=== PATIENT | male | born 1930 | race Caucasian/White ===

== ENCOUNTER 2017-01-21 16:35 | Emergency (ER) | payer OTHER ==
[~2017-01-21] VITALS: Ht 182.9 cm; Wt 98.8 kg
[~2017-01-21 16:35] MED LIST: ACIPHEX20 MG PO; APIDRA100 UNIT/1 SQ; BACTRIM,SEPT1 TABLET PO; CALCIUM 500 +1 EACH PO; CALCIUM 600 +1 EAC7 PO; CALCIUM CITRAT1 EA14 PO; CARAFATE1 GM PO; CELEXA10 MG PO; CLEARLAX17 GM PO; COUMADIN,JANTO7.5 MG PO; COUMADIN5 MG PO; DIOVAN160 MG PO; FLEXERIL10 MG PO; GLUCOSAMINE H1500 MG PO; GLUCOSAMINE-MS1 EAC3 PO; KEFLEX500 MG PO; LANTUS 10100 UNITS/ SC; LANTUS100 UNIT/2 SQ; LISINOPRIL2.5 MG PO; LISINOPRIL5 MG PO; LOSARTAN-HCTZ1 EACH PO; LOTEMAX5 ML LEFT EYE; LOVENOX100 MG/1 M SC; MULTI VITAMINS PO; NATURAL BALANCE15 ML BOTH EYES; NON-ASPIRIN EX500 M2 PO; NOVOLOG 10100 UNITS/ SC; NUVIGIL150 MG PO; OSTEO-BIFLE1 CAPSULE PO; PERCOCET 5/31 TABLET PO; PROAIR HFA8.5 GM IH; TYLENOL EXTRA500 MG PO; ULTRAM50 MG PO; ZETIA10 MG PO
[2017-01-21 17:25] LABS: ADD MIUA? YES; BILIRUBIN NEGATIVE; BLOOD SMALL; COLOR YELLOW ((YELLOW)); GLUCOSE (STRIP) >=500; KETONES 5; LEUKOCYTES NEGATIVE; NITRITE NEGATIVE; PROTEIN (STRIP) 30; SPECIFIC GRAVITY 1.018 (1.000-1.030); UROBILINOGEN 0.2 MG/DL (0.2-1.0)
[2017-01-21 17:44] LABS: CASTS NONE SEEN /LPF; CRYSTALS PRESENT; EPITHELIAL CELLS RARE /HPF; MUCUS TRACE /LPF; RED BLOOD CELLS RARE /HPF (0-5); UCUL ADDED? NO; WHITE BLOOD CELLS NONE SEEN /HPF (0-5)
[2017-01-21 17:45] LABS: AMORPHOUS URATES CRYSTALS 1+; BACTERIA RARE /HPF
[2017-01-21 18:02] LABS: HEMATOCRIT 32.8 % (38.0-50.0); MCH 25.9 PG (29.0-34.0); MCV 80.8 FL (86-99); MEAN PLAT.VOLUME 9.8 uM^3 (9.0-12.4); PLATELET COUNT 106 K/uL (156-360); RBC DIS.WIDTH-CV 18.7 % (11.8-14.6); RBC DIS.WIDTH-SD 54.4 % (39-53); RED BLOOD COUNT 4.06 M/uL (4.00-5.50); WHITE BLOOD COUNT 5.6 K/uL (4.1-10.2)
[2017-01-21 18:11] LABS: CHLORIDE 109 mEq/L (99-109); POTASSIUM 3.7 mEq/L (3.7-5.4); SODIUM 135 mEq/L (136-147)
[2017-01-21 18:13] LABS: GLUCOSE 216 mg/dL (70-99)
[2017-01-21 18:14] LABS: ANION GAP 11 MEQ/L (2-14)
[2017-01-21 18:17] LABS: GFR ESTIMATE (CALCULATED) > 59 mL/min/; UREA NITROGEN (BUN) 17 mg/dL (9-23)
[2017-01-21 20:13] VITALS: BP 177/62
== END 2017-01-21 20:14 | disposition home or self-care (01) ==
LOC: EME 16:35
PROVIDERS: Emergency Medicine
DX: E11.65 Type 2 diabetes mellitus with hyperglycemia (principal); M25.551 Pain in right hip; Z79.4 Long term (current) use of insulin; I10 Essential (primary) hypertension; F32.9 Major depressive disorder, single episode, unspecified; Z87.442 Personal history of urinary calculi; Z86.718 Personal history of other venous thrombosis and embolism; Z79.01 Long term (current) use of anticoagulants; Z87.891 Personal history of nicotine dependence; Z88.8 Allergy status to other drugs, medicaments and biological substances
CPT/HCPCS: 73502; 80048; 81003; 85027; 99281; 99284; J7030

== ENCOUNTER 2017-01-22 15:03 | Inpatient (IN) | payer OTHER ==
[~2017-01-22] VITALS: Ht 185.4 cm; Wt 96.8 kg
[2017-01-22 15:36] LABS: HEMATOCRIT 31.4 % (38.0-50.0); MCHC 32.5 G/DL (30.0-36.0); MCV 80.1 FL (86-99); MEAN PLAT.VOLUME 10.1 uM^3 (9.0-12.4); PLATELET COUNT 96 K/uL (156-360); RBC DIS.WIDTH-CV 18.9 % (11.8-14.6); RBC DIS.WIDTH-SD 53.9 % (39-53); RED BLOOD COUNT 3.92 M/uL (4.00-5.50); WHITE BLOOD COUNT 6.1 K/uL (4.1-10.2)
[2017-01-22 15:42] LABS: CHLORIDE 101 mEq/L (99-109); POTASSIUM 3.6 mEq/L (3.7-5.4)
[2017-01-22 15:43] LABS: GLUCOSE 277 mg/dL (70-99); SODIUM 128 mEq/L (136-147)
[2017-01-22 15:45] LABS: ANION GAP 13 MEQ/L (2-14)
[2017-01-22 15:47] LABS: GFR ESTIMATE (CALCULATED) > 59 mL/min/
[2017-01-22 15:48] LABS: UREA NITROGEN (BUN) 22 mg/dL (9-23)
[2017-01-22 15:51] LABS: TROP-I INTERPRETATION NEGATIVE; TROPONIN-I 0.02 ng/mL (0.0-0.30)
[2017-01-22 16:01] LABS: BASE EXCESS -3.8 mEq/L (-3 to +3); BICARBONATE 18.3 mEq/L (22-26); CARBOXY HGB 0.8 % (0-5); COMMENTS - BLOOD GASES A+C+; DEVICE RA; METHEMOGLOBIN 0.1 % (0-1.5); PCO2 24 mm Hg (35-45); PO2 66 mm Hg (80-100); SITE LR; TOTAL RESP RATE 30 resp/min; pH 7.49 (7.35-7.45)
[2017-01-22 16:41] LABS: ADD MIUA? YES; BILIRUBIN NEGATIVE; BLOOD SMALL; COLOR YELLOW ((YELLOW)); GLUCOSE (STRIP) 150; KETONES 5; LEUKOCYTES NEGATIVE; NITRITE NEGATIVE; PROTEIN (STRIP) NEGATIVE; UROBILINOGEN 0.2 MG/DL (0.2-1.0)
[2017-01-22 16:54] LABS: BACTERIA NONE SEEN /HPF; CASTS PRESENT /LPF; EPITHELIAL CELLS NONE SEEN /HPF; HYALINE CASTS RARE /LPF; MUCUS NONE SEEN /LPF; RED BLOOD CELLS NONE SEEN /HPF (0-5); WHITE BLOOD CELLS NONE SEEN /HPF (0-5)
[2017-01-22 17:43] LABS: INTER. NORMALIZED RATIO 1.6; PROTHROMBIN TIME 18.2 SEC (10.2-12.9)
[2017-01-22 17:46] LABS: PTT 32.9 SEC (25-37)
[2017-01-22 17:53] LABS: TOTAL BILIRUBIN 1.8 mg/dL (0.0-1.0)
[2017-01-22 17:54] LABS: ALKALINE PHOSPHATASE 104 IU/L (3-129)
[2017-01-22 17:57] LABS: EOSINOPHIL (%) 0.2 % (0-5); IMMATURE GRANULOCYTE (%) 0.8 % (0.0-0.7); IMMATURE GRANULOCYTE COUNT 0.1 K/uL; INSTRUMENT ABS NEUTROPHIL CT 5.6 K/uL; LIPASE 20 U/L (1.0-51.0); LYMPHOCYTE COUNT 0.3 K/uL (1.0-2.8); MONOCYTE (%) 4.2 % (3-12); MONOCYTE COUNT 0.3 K/uL (0-0.8); NEUTROPHIL (%) 89.8 % (45-76); NEUTROPHIL COUNT 5.6 K/uL (1.8-6.4)
[2017-01-23] VITALS (7 sets, daily range): BP systolic 125–158; BP diastolic 58–71
[2017-01-23 01:08] LABS: INTER. NORMALIZED RATIO 2.7
[2017-01-23 01:22] LABS: PROTHROMBIN TIME 31.1 SEC (10.2-12.9); PTT 49.4 SEC (25-37)
[2017-01-23 01:23] LABS: TROP-I INTERPRETATION NEGATIVE; TROPONIN-I < 0.01 ng/mL (0.0-0.30)
[2017-01-23 06:38] LABS: EOSINOPHIL (%) 0.4 % (0-5); HEMATOCRIT 28.3 % (38.0-50.0); IMMATURE GRANULOCYTE (%) 1.1 % (0.0-0.7); IMMATURE GRANULOCYTE COUNT 0.1 K/uL; INSTRUMENT ABS NEUTROPHIL CT 4.2 K/uL; LYMPHOCYTE COUNT 0.3 K/uL (1.0-2.8); MCHC 33.2 G/DL (30.0-36.0); MCV 81.3 FL (86-99); MEAN PLAT.VOLUME 10.1 uM^3 (9.0-12.4); MONOCYTE (%) 3.6 % (3-12); MONOCYTE COUNT 0.2 K/uL (0-0.8); NEUTROPHIL (%) 89.4 % (45-76); NEUTROPHIL COUNT 4.2 K/uL (1.8-6.4); PLATELET COUNT 87 K/uL (156-360); RBC DIS.WIDTH-CV 19.5 % (11.8-14.6); RBC DIS.WIDTH-SD 56.2 % (39-53); RED BLOOD COUNT 3.48 M/uL (4.00-5.50); WHITE BLOOD COUNT 4.7 K/uL (4.1-10.2)
[2017-01-23 06:44] LABS: INTER. NORMALIZED RATIO 1.7; PROTHROMBIN TIME 19.6 SEC (10.2-12.9)
[2017-01-23 07:05] LABS: TROP-I INTERPRETATION NEGATIVE; TROPONIN-I 0.03 ng/mL (0.0-0.30)
[2017-01-23 10:15] LABS: ANION GAP 11 MEQ/L (2-14); CHLORIDE 104 MEQ/L (99-109); POTASSIUM 3.9 MEQ/L (3.7-5.4); SAMPLE HEMOLYSIS CHECK 0; SAMPLE ICTERIC CHECK 0; SAMPLE LIPEMIA CHECK 0; SODIUM 131 MEQ/L (136-147); TOTAL BILIRUBIN 1.4 MG/DL (0.0-1.0)
[2017-01-23 10:21] LABS: ALKALINE PHOSPHATASE 98 IU/L (3-129); GFR ESTIMATE (CALCULATED) > 59 mL/min/; GLUCOSE 356 mg/dL (70-99); UREA NITROGEN (BUN) 22 mg/dL (9-23)
[2017-01-23 12:05] LABS: POINT-OF-CARE METER ID UU14188625
[2017-01-23] MEDS ORDERED: FUROSEMIDE80 MG PO (13:10)
[2017-01-23] MEDS ORDERED: BACTRIM,SEPT1 TABLET PO (13:10)
[2017-01-23] MEDS ORDERED: WARFARIN SODIUM5 MG PO (13:11)
[2017-01-23] MEDS ORDERED: NOVOLOG 10100 UNITS/ SC (13:11)
[2017-01-23] MEDS ORDERED: LANTUS 10100 UNITS/ SC (13:11)
[2017-01-23] MEDS ORDERED: OMEPRAZOLE20 MG PO (13:12)
[2017-01-23] MEDS ORDERED: TAMSULOSIN HCL0.4 MG PO (13:13)
[2017-01-23 17:01] LABS: POINT-OF-CARE METER ID UU14188625
[2017-01-23 23:29] LABS: POINT-OF-CARE METER ID UU14188625
[2017-01-24] VITALS (7 sets, daily range): BP systolic 140–182; BP diastolic 63–82
[2017-01-24 06:16] LABS: INTER. NORMALIZED RATIO 1.7
[2017-01-24 06:56] LABS: POINT-OF-CARE METER ID UU13113717
[2017-01-24 11:17] LABS: POINT-OF-CARE METER ID UU14188625
[2017-01-24 14:42] LABS: HEMATOCRIT 30.4 % (38.0-50.0); MCH 25.8 PG (29.0-34.0); MCHC 31.3 G/DL (30.0-36.0); MCV 82.6 FL (86-99); RBC DIS.WIDTH-SD 59.5 % (39-53); RED BLOOD COUNT 3.68 M/uL (4.00-5.50); WHITE BLOOD COUNT 3.3 K/uL (4.1-10.2)
[2017-01-24 15:06] LABS: ANION GAP 8 MEQ/L (2-14); CHLORIDE 105 MEQ/L (99-109); GFR ESTIMATE (CALCULATED) > 59 mL/min/; GLUCOSE 348 mg/dL (70-99); POTASSIUM 3.8 MEQ/L (3.7-5.4); SAMPLE HEMOLYSIS CHECK 0; SAMPLE ICTERIC CHECK 0; SAMPLE LIPEMIA CHECK 0; SODIUM 131 MEQ/L (136-147); UREA NITROGEN (BUN) 20 mg/dL (9-23)
[2017-01-24 15:34] LABS: PLATELET CLUMPS PRESENT - PLATELET COUNTS APPEARS DECREASED
[2017-01-24 16:09] LABS: PLATELET COUNT UNABLE TO REPORT K/uL (156-360)
[2017-01-24 16:44] LABS: POINT-OF-CARE METER ID UU14188625
[2017-01-25 01:10] LABS: POINT-OF-CARE METER ID UU14188625
[2017-01-25 03:28] LABS: POINT-OF-CARE METER ID UU13113717
[2017-01-25 04:26] VITALS: BP 158/71
[2017-01-25 06:52] LABS: POINT-OF-CARE METER ID UU13113717
[2017-01-25 07:09] VITALS: BP 152/70
[2017-01-25 07:20] LABS: MCH 26.1 PG (29.0-34.0); MCHC 32.8 G/DL (30.0-36.0); MCV 79.6 FL (86-99); RBC DIS.WIDTH-CV 19.9 % (11.8-14.6); RBC DIS.WIDTH-SD 56.6 % (39-53); RED BLOOD COUNT 3.14 M/uL (4.00-5.50)
[2017-01-25 07:27] LABS: WHITE BLOOD COUNT 0.7 K/uL (4.1-10.2)
[2017-01-25 07:56] LABS: IMM.PLATELET FRACTION 0.3 (1-7)
[2017-01-25 08:05] LABS: PLAT.SUFFICIENCY VERY DECREASED
[2017-01-25 08:33] LABS: HEMATOCRIT 31.1 % (38.0-50.0); MCH 25.5 PG (29.0-34.0); MCHC 31.2 G/DL (30.0-36.0); MCV 81.6 FL (86-99); MEAN PLAT.VOLUME 10.1 uM^3 (9.0-12.4); RBC DIS.WIDTH-CV 20.3 % (11.8-14.6); RBC DIS.WIDTH-SD 59.7 % (39-53)
[2017-01-25 08:37] LABS: INTER. NORMALIZED RATIO 1.8; PROTHROMBIN TIME 19.9 SEC (10.2-12.9)
[2017-01-25 09:03] LABS: PLATELET COUNT 95 K/uL (156-360); RED BLOOD COUNT 3.81 M/uL (4.00-5.50)
[2017-01-25 09:11] LABS: ANION GAP 7 MEQ/L (2-14); CHLORIDE 109 MEQ/L (99-109); GFR ESTIMATE (CALCULATED) > 59 mL/min/; GLUCOSE 100 mg/dL (70-99); MAGNESIUM 1.9 mg/dl (1.3-2.7); POTASSIUM 3.3 MEQ/L (3.7-5.4); SAMPLE HEMOLYSIS CHECK 0; SAMPLE ICTERIC CHECK 0; SAMPLE LIPEMIA CHECK 0; SODIUM 138 MEQ/L (136-147); UREA NITROGEN (BUN) 18 mg/dL (9-23)
[2017-01-25 11:18] VITALS: BP 168/80
[2017-01-25 11:23] LABS: POINT-OF-CARE METER ID UU13113717
[2017-01-25 15:08] VITALS: BP 140/88
[2017-01-25 16:40] LABS: POINT-OF-CARE METER ID UU14174225
[2017-01-25 19:41] VITALS: BP 166/72
[2017-01-25 21:37] LABS: POINT-OF-CARE METER ID UU14174225
[2017-01-25 23:55] VITALS: BP 162/70
[2017-01-26 03:55] VITALS: BP 166/70
[2017-01-26 06:05] LABS: HEMATOCRIT 28.2 % (38.0-50.0); MCH 26.9 PG (29.0-34.0); MCV 81.5 FL (86-99); MEAN PLAT.VOLUME 10.8 uM^3 (9.0-12.4); PLATELET COUNT 84 K/uL (156-360); RBC DIS.WIDTH-CV 20.5 % (11.8-14.6); RBC DIS.WIDTH-SD 59.7 % (39-53); RED BLOOD COUNT 3.46 M/uL (4.00-5.50)
[2017-01-26 06:18] LABS: INTER. NORMALIZED RATIO 2.3; PROTHROMBIN TIME 26.7 SEC (10.2-12.9)
[2017-01-26 06:33] LABS: ANION GAP 9 MEQ/L (2-14); CHLORIDE 108 MEQ/L (99-109); GFR ESTIMATE (CALCULATED) > 59 mL/min/; GLUCOSE 100 mg/dL (70-99); MAGNESIUM 1.8 mg/dl (1.3-2.7); POTASSIUM 2.7 MEQ/L (3.7-5.4); SAMPLE HEMOLYSIS CHECK 0; SAMPLE ICTERIC CHECK 0; SAMPLE LIPEMIA CHECK 0; SODIUM 138 MEQ/L (136-147); UREA NITROGEN (BUN) 15 mg/dL (9-23)
[2017-01-26 07:36] VITALS: BP 169/82
[2017-01-26 12:05] LABS: POINT-OF-CARE METER ID UU13113717
[2017-01-26 15:23] VITALS: BP 149/67
[2017-01-26 16:59] LABS: POINT-OF-CARE METER ID UU13113717
[2017-01-26 20:54] LABS: POINT-OF-CARE METER ID UU13113717
[2017-01-26 23:43] VITALS: BP 155/70
[2017-01-27 03:57] LABS: POINT-OF-CARE METER ID UU13113717
[2017-01-27 05:59] LABS: HEMATOCRIT 29.3 % (38.0-50.0); MCH 26.3 PG (29.0-34.0); MCHC 32.4 G/DL (30.0-36.0); MCV 81.2 FL (86-99); MEAN PLAT.VOLUME 10.7 uM^3 (9.0-12.4); PLATELET COUNT 90 K/uL (156-360); RBC DIS.WIDTH-CV 20.4 % (11.8-14.6); RBC DIS.WIDTH-SD 59.9 % (39-53); RED BLOOD COUNT 3.61 M/uL (4.00-5.50); WHITE BLOOD COUNT 4.3 K/uL (4.1-10.2)
[2017-01-27 06:08] LABS: INTER. NORMALIZED RATIO 2.6; PROTHROMBIN TIME 29.7 SEC (10.2-12.9)
[2017-01-27 06:41] LABS: ANION GAP 8 MEQ/L (2-14); CHLORIDE 105 MEQ/L (99-109); GFR ESTIMATE (CALCULATED) > 59 mL/min/; GLUCOSE 168 mg/dL (70-99); POTASSIUM 3.1 MEQ/L (3.7-5.4); SAMPLE HEMOLYSIS CHECK 0; SAMPLE ICTERIC CHECK 0; SAMPLE LIPEMIA CHECK 0; SODIUM 137 MEQ/L (136-147); UREA NITROGEN (BUN) 14 mg/dL (9-23)
[2017-01-27 07:40] LABS: POINT-OF-CARE METER ID UU14174225
[2017-01-27 08:06] VITALS: BP 154/81
[2017-01-27 11:54] LABS: POINT-OF-CARE METER ID UU13113717
[2017-01-27] MEDS ORDERED: COUMADIN3 MG PO (12:18)
[2017-01-27] MEDS ORDERED: K-DUR20 MEQ PO (12:24)
[2017-01-27] MEDS ORDERED: MAGNESIUM400 M1 PO (13:46)
[2017-01-27 15:00] VITALS: BP 137/72
== END 2017-01-27 15:12 | DRG 871 ==
LOC: EME 15:03 → EDOF 23:23 → 5SOUTH 23:23 → ENRESERV 23:25 → 5SOUTH 01-23 01:32
PROVIDERS: Internal Medicine; Nurse Practitioner Adult Health; Nurse Practitioner Family
PROC: 0H96XZZ Drainage of Back Skin, External Approach (ICD-10-PCS; principal; 2017-01-23)
DX: A41.9 Sepsis, unspecified organism (principal); G93.41 Metabolic encephalopathy; E87.4 Mixed disorder of acid-base balance; E87.6 Hypokalemia; M79.89 Other specified soft tissue disorders; L72.0 Epidermal cyst; I51.7 Cardiomegaly; J44.9 Chronic obstructive pulmonary disease, unspecified; F32.9 Major depressive disorder, single episode, unspecified; E88.09 Other disorders of plasma-protein metabolism, not elsewhere classified; I10 Essential (primary) hypertension; D68.51 Activated protein C resistance; E11.65 Type 2 diabetes mellitus with hyperglycemia; I11.9 Hypertensive heart disease without heart failure; W18.30XA Fall on same level, unspecified, initial encounter; R29.6 Repeated falls; E87.1 Hypo-osmolality and hyponatremia; E83.51 Hypocalcemia; G47.33 Obstructive sleep apnea (adult) (pediatric); D64.9 Anemia, unspecified; Z86.718 Personal history of other venous thrombosis and embolism; Z79.4 Long term (current) use of insulin; Z88.6 Allergy status to analgesic agent; Z88.8 Allergy status to other drugs, medicaments and biological substances; Z79.01 Long term (current) use of anticoagulants; Z86.711 Personal history of pulmonary embolism; Z83.3 Family history of diabetes mellitus; Z91.19 Patient's noncompliance with other medical treatment and regimen; Z87.442 Personal history of urinary calculi
CPT/HCPCS: 36600; 70450; 71010; 71020; 72128; 73502; 74177; 80048; 80053; 80076; 80202; 81003; 82040; 82803; 82948; 83605; 83690; 83735; 83880; 83930; 83935; 84300; 84484; 85025; 85027; 85610; 85730; 87040; 87070; 87075; 87205; 87493; 93005; 99202; 99281; 99284; 99285; J0692; J1815; J1940; J2543; J3010; J3370; J3475; J3480; J7030; J7050

== ENCOUNTER 2017-03-12 10:49 | Inpatient (IN) | payer OTHER ==
[~2017-03-12] VITALS: Ht 188 cm; Wt 93.9 kg
[~2017-03-12 10:49] MED LIST changes: +COUMADIN3 MG PO; +FUROSEMIDE80 MG PO; +K-DUR20 MEQ PO; +MAGNESIUM400 M1 PO; +OMEPRAZOLE20 MG PO; +TAMSULOSIN HCL0.4 MG PO; +WARFARIN SODIUM5 MG PO
[2017-03-12 12:00] LABS: EOSINOPHIL (%) 2.2 % (0-5); EOSINOPHIL COUNT 0.1 K/uL (0-0.3); HEMATOCRIT 33.7 % (38.0-50.0); IMMATURE GRANULOCYTE (%) 0.7 % (0.0-0.7); INSTRUMENT ABS NEUTROPHIL CT 3.1 K/uL; MCH 26.3 PG (29.0-34.0); MCV 82.2 FL (86-99); MEAN PLAT.VOLUME 9.1 uM^3 (9.0-12.4); MONOCYTE (%) 7.1 % (3-12); MONOCYTE COUNT 0.3 K/uL (0-0.8); NEUTROPHIL (%) 67.5 % (45-76); NEUTROPHIL COUNT 3.1 K/uL (1.8-6.4); PLATELET COUNT 101 K/uL (156-360); RBC DIS.WIDTH-CV 17.6 % (11.8-14.6); RBC DIS.WIDTH-SD 52.9 % (39-53); WHITE BLOOD COUNT 4.5 K/uL (4.1-10.2)
[2017-03-12 12:05] LABS: INTER. NORMALIZED RATIO 1.7; PROTHROMBIN TIME 18.9 SEC (10.2-12.9)
[2017-03-12 12:08] LABS: CHLORIDE 107 mEq/L (99-109); POTASSIUM 3.9 mEq/L (3.7-5.4); PTT 34.1 SEC (25-37); SODIUM 138 mEq/L (136-147)
[2017-03-12 12:10] LABS: GLUCOSE 295 mg/dL (70-99)
[2017-03-12 12:11] LABS: ADD MIUA? NO; BILIRUBIN NEGATIVE; BLOOD NEGATIVE; COLOR STRAW ((YELLOW)); GLUCOSE (STRIP) 50; KETONES NEGATIVE; LEUKOCYTES NEGATIVE; NITRITE NEGATIVE; PROTEIN (STRIP) NEGATIVE; SPECIFIC GRAVITY 1.008 (1.000-1.030); UCUL ADDED? NO; UROBILINOGEN 0.2 MG/DL (0.2-1.0)
[2017-03-12 12:11] LABS: ANION GAP 13 MEQ/L (2-14)
[2017-03-12 12:12] LABS: TOTAL BILIRUBIN 0.8 mg/dL (0.0-1.0)
[2017-03-12 12:13] LABS: ALKALINE PHOSPHATASE 198 IU/L (3-129)
[2017-03-12 12:14] LABS: GFR ESTIMATE (CALCULATED) > 59 mL/min/
[2017-03-12 12:15] LABS: UREA NITROGEN (BUN) 13 mg/dL (9-23)
[2017-03-12 12:17] LABS: LIPASE 39 U/L (1.0-51.0)
[2017-03-12] MEDS ORDERED: LASIX40 MG PO (14:37)
[2017-03-12] MEDS ORDERED: KLOR-CON 1010 ME1 PO (14:41)
[2017-03-12] MEDS ORDERED: BUSPIRONE HCL10 MG PO (14:42)
[2017-03-12] MEDS ORDERED: WARFARIN SODIUM2 MG PO (14:44)
[2017-03-12] MEDS ORDERED: WARFARIN SODIUM5 MG PO (14:44)
[2017-03-12] MEDS ORDERED: AMPICILLIN TRI500 MG PO (14:46)
[2017-03-12] MEDS ORDERED: METFORMIN HCL500 MG PO (14:47)
[2017-03-12] MEDS ORDERED: LANTUS 10100 UNITS/ SQ (14:49)
[2017-03-12] MEDS ORDERED: PRED FORTE100 DROP/5 RIGHT EYE (15:05)
[2017-03-12] MEDS ORDERED: MILK OF MAGN PO (15:06)
[2017-03-12] MEDS ORDERED: DULCOLAX10 MG PR (15:07)
[2017-03-12] MEDS ORDERED: FLEET ENEMA-AD118 ML PR (15:07)
[2017-03-12] MEDS ORDERED: TYLENOL REGULA325 MG PO (15:08)
[2017-03-12] MEDS ORDERED: GLUCO BURST37.5 GM PO (15:09)
[2017-03-12 17:27] VITALS: BP 125/61
[2017-03-12 17:33] LABS: POINT-OF-CARE METER ID UU14314084
[2017-03-12 19:54] VITALS: BP 126/60
[2017-03-12 22:06] LABS: POINT-OF-CARE METER ID UU14314084
[2017-03-12 23:57] VITALS: BP 121/62
[2017-03-13 04:42] VITALS: BP 125/66
[2017-03-13 06:39] LABS: EOSINOPHIL (%) 2.7 % (0-5); EOSINOPHIL COUNT 0.2 K/uL (0-0.3); HEMATOCRIT 30.9 % (38.0-50.0); IMMATURE GRANULOCYTE (%) 0.9 % (0.0-0.7); IMMATURE GRANULOCYTE COUNT 0.1 K/uL; INSTRUMENT ABS NEUTROPHIL CT 4.7 K/uL; LYMPHOCYTE COUNT 0.7 K/uL (1.0-2.8); MCH 26.6 PG (29.0-34.0); MCHC 31.7 G/DL (30.0-36.0); MONOCYTE (%) 3.6 % (3-12); MONOCYTE COUNT 0.2 K/uL (0-0.8); NEUTROPHIL COUNT 4.7 K/uL (1.8-6.4); PLATELET COUNT 92 K/uL (156-360); RBC DIS.WIDTH-CV 18.1 % (11.8-14.6); RBC DIS.WIDTH-SD 55.8 % (39-53); RED BLOOD COUNT 3.68 M/uL (4.00-5.50); WHITE BLOOD COUNT 5.8 K/uL (4.1-10.2)
[2017-03-13 06:47] LABS: POINT-OF-CARE METER ID UU14314084
[2017-03-13 07:07] LABS: ANION GAP 9 MEQ/L (2-14); CHLORIDE 110 MEQ/L (99-109); GFR ESTIMATE (CALCULATED) > 59 mL/min/; GLUCOSE 142 mg/dL (70-99); SAMPLE HEMOLYSIS CHECK 0; SAMPLE ICTERIC CHECK 0; SAMPLE LIPEMIA CHECK 0; SODIUM 141 MEQ/L (136-147); UREA NITROGEN (BUN) 16 mg/dL (9-23)
[2017-03-13 07:57] VITALS: BP 129/59
[2017-03-13 10:49] VITALS: BP 123/55
[2017-03-13 11:26] LABS: INTER. NORMALIZED RATIO 1.9; PROTHROMBIN TIME 21.3 SEC (10.2-12.9)
[2017-03-13 12:18] LABS: POINT-OF-CARE METER ID UU14314084
[2017-03-13 12:38] LABS: POINT-OF-CARE METER ID UU14314084
[2017-03-13 15:44] VITALS: BP 106/55
[2017-03-13 16:51] LABS: POINT-OF-CARE METER ID UU14208750
[2017-03-13 20:10] VITALS: BP 155/68
[2017-03-13 21:33] LABS: POINT-OF-CARE METER ID UU14162508
[2017-03-13 23:30] VITALS: BP 122/60
[2017-03-14 04:10] VITALS: BP 137/65
[2017-03-14 06:25] LABS: POINT-OF-CARE METER ID UU14162508
[2017-03-14 06:46] LABS: PROTHROMBIN TIME 22.9 SEC (10.2-12.9)
[2017-03-14 06:50] LABS: EOSINOPHIL (%) 4.7 % (0-5); EOSINOPHIL COUNT 0.2 K/uL (0-0.3); HEMATOCRIT 28.3 % (38.0-50.0); IMMATURE GRANULOCYTE (%) 1.1 % (0.0-0.7); INSTRUMENT ABS NEUTROPHIL CT 2.1 K/uL; LYMPHOCYTE COUNT 0.9 K/uL (1.0-2.8); MCH 27.3 PG (29.0-34.0); MCHC 32.2 G/DL (30.0-36.0); MEAN PLAT.VOLUME 9.1 uM^3 (9.0-12.4); MONOCYTE (%) 11.9 % (3-12); MONOCYTE COUNT 0.4 K/uL (0-0.8); NEUTROPHIL COUNT 2.1 K/uL (1.8-6.4); PLATELET COUNT 71 K/uL (156-360); RBC DIS.WIDTH-CV 18.1 % (11.8-14.6); RBC DIS.WIDTH-SD 55.7 % (39-53); RED BLOOD COUNT 3.33 M/uL (4.00-5.50); WHITE BLOOD COUNT 3.6 K/uL (4.1-10.2)
[2017-03-14 07:13] LABS: ANION GAP 5 MEQ/L (2-14); CHLORIDE 109 MEQ/L (99-109); GFR ESTIMATE (CALCULATED) > 59 mL/min/; GLUCOSE 154 mg/dL (70-99); POTASSIUM 3.5 MEQ/L (3.7-5.4); SAMPLE HEMOLYSIS CHECK 0; SAMPLE ICTERIC CHECK 0; SAMPLE LIPEMIA CHECK 0; SODIUM 136 MEQ/L (136-147); UREA NITROGEN (BUN) 13 mg/dL (9-23)
[2017-03-14 07:27] VITALS: BP 141/68
[2017-03-14 12:08] LABS: POINT-OF-CARE METER ID UU14314084
[2017-03-14 14:17] LABS: INTERNAL CONTROL VALID? YES
[2017-03-14 14:53] LABS: C DIFF TOXIN NEGATIVE (NEGATIVE)
[2017-03-14 15:06] LABS: PROBE CHECK PASS; SPECIMEN PROCESSING CONTROL PASS
[2017-03-14 16:00] VITALS: BP 188/77
[2017-03-14 16:13] LABS: FERRITIN 39 NG/ML (22-322)
[2017-03-14 16:28] LABS: POINT-OF-CARE METER ID UU14314084
[2017-03-14 16:54] VITALS: BP 162/71
[2017-03-14 18:04] LABS: IRON 53 MCG/DL (35-150)
[2017-03-14 21:49] LABS: POINT-OF-CARE METER ID UU14208750
[2017-03-14 23:35] VITALS: BP 155/68
[2017-03-15 06:42] LABS: POINT-OF-CARE METER ID UU14314084
[2017-03-15 07:18] LABS: INTER. NORMALIZED RATIO 1.9; PROTHROMBIN TIME 21.6 SEC (10.2-12.9)
[2017-03-15 08:09] VITALS: BP 160/76
[2017-03-15 11:53] LABS: POINT-OF-CARE METER ID UU14208750
[2017-03-15 16:03] VITALS: BP 151/67
[2017-03-15 16:41] LABS: POINT-OF-CARE METER ID UU14314084
[2017-03-15 22:00] LABS: POINT-OF-CARE METER ID UU14208750
[2017-03-15 23:15] VITALS: BP 149/68
[2017-03-16 06:39] LABS: POINT-OF-CARE METER ID UU14208750
[2017-03-16 07:19] LABS: EOSINOPHIL (%) 3.9 % (0-5); EOSINOPHIL COUNT 0.1 K/uL (0-0.3); HEMATOCRIT 27.8 % (38.0-50.0); IMMATURE GRANULOCYTE (%) 0.6 % (0.0-0.7); INSTRUMENT ABS NEUTROPHIL CT 2.2 K/uL; MCH 27.3 PG (29.0-34.0); MCHC 33.1 G/DL (30.0-36.0); MCV 82.5 FL (86-99); MEAN PLAT.VOLUME 9.1 uM^3 (9.0-12.4); MONOCYTE (%) 8.6 % (3-12); MONOCYTE COUNT 0.3 K/uL (0-0.8); NEUTROPHIL (%) 59.7 % (45-76); NEUTROPHIL COUNT 2.2 K/uL (1.8-6.4); PLATELET COUNT 71 K/uL (156-360); RBC DIS.WIDTH-CV 17.9 % (11.8-14.6); RBC DIS.WIDTH-SD 53.1 % (39-53); RED BLOOD COUNT 3.37 M/uL (4.00-5.50); WHITE BLOOD COUNT 3.6 K/uL (4.1-10.2)
[2017-03-16 07:20] VITALS: BP 158/70
[2017-03-16 07:35] LABS: INTER. NORMALIZED RATIO 1.9; PROTHROMBIN TIME 21.7 SEC (10.2-12.9)
[2017-03-16 07:50] LABS: ANION GAP 6 MEQ/L (2-14); CHLORIDE 109 MEQ/L (99-109); GFR ESTIMATE (CALCULATED) > 59 mL/min/; POTASSIUM 3.9 MEQ/L (3.7-5.4); SAMPLE HEMOLYSIS CHECK 0; SAMPLE ICTERIC CHECK 0; SAMPLE LIPEMIA CHECK 0; SODIUM 135 MEQ/L (136-147); UREA NITROGEN (BUN) 12 mg/dL (9-23)
[2017-03-16 07:53] LABS: GLUCOSE 261 mg/dL (70-99)
[2017-03-16 11:51] LABS: POINT-OF-CARE METER ID UU14162508
[2017-03-16 15:22] VITALS: BP 159/70
[2017-03-16 17:06] LABS: POINT-OF-CARE METER ID UU14208750
[2017-03-16 21:53] LABS: POINT-OF-CARE METER ID UU14314084
[2017-03-17 00:14] VITALS: BP 137/65
[2017-03-17 06:12] LABS: POINT-OF-CARE METER ID UU14314084
[2017-03-17 06:57] VITALS: BP 139/66
[2017-03-17 07:50] LABS: ANION GAP 7 MEQ/L (2-14); CHLORIDE 106 MEQ/L (99-109); EOSINOPHIL (%) 3.6 % (0-5); EOSINOPHIL COUNT 0.1 K/uL (0-0.3); HEMATOCRIT 29.7 % (38.0-50.0); IMMATURE GRANULOCYTE (%) 0.5 % (0.0-0.7); INSTRUMENT ABS NEUTROPHIL CT 2.4 K/uL; MCH 26.6 PG (29.0-34.0); MCV 83.2 FL (86-99); MONOCYTE (%) 9.5 % (3-12); MONOCYTE COUNT 0.4 K/uL (0-0.8); NEUTROPHIL (%) 60.4 % (45-76); NEUTROPHIL COUNT 2.4 K/uL (1.8-6.4); POTASSIUM 4.2 MEQ/L (3.7-5.4); RBC DIS.WIDTH-CV 18.1 % (11.8-14.6); RBC DIS.WIDTH-SD 53.8 % (39-53); RED BLOOD COUNT 3.57 M/uL (4.00-5.50); SAMPLE HEMOLYSIS CHECK 0; SAMPLE ICTERIC CHECK 0; SAMPLE LIPEMIA CHECK 0; SODIUM 134 MEQ/L (136-147); WHITE BLOOD COUNT 3.9 K/uL (4.1-10.2)
[2017-03-17 07:55] LABS: GFR ESTIMATE (CALCULATED) > 59 mL/min/ (58.99-99999); GLUCOSE 253 mg/dL (70-99); UREA NITROGEN (BUN) 13 mg/dL (9-23)
[2017-03-17 09:18] LABS: HEMATOLOGY COMMENT 1 SMEAR COMPATIBLE; IMM.PLATELET FRACTION 8.7 (1-7); PLATELET CLUMPS PRESENT - PLATELET COUNTS APPEARS DECREASED
[2017-03-17 09:22] LABS: PLATELET COUNT UNABLE TO REPORT K/uL (156-360)
[2017-03-17 11:57] LABS: PROTHROMBIN TIME 23.5 SEC (10.2-12.9)
[2017-03-17] MEDS ORDERED: METRONIDAZOLE500 MG PO (12:24)
[2017-03-17] MEDS ORDERED: CHOLESTYRAMINE P4 GM PO (12:25)
[2017-03-17] MEDS ORDERED: ACIDOPHILUS LA1 EACH PO (12:26)
[2017-03-17] MEDS ORDERED: DELZICOL400 M1 PO (12:26)
[2017-03-17] MEDS ORDERED: COUMADIN6 MG PO (12:31)
[2017-03-17] MEDS ORDERED: LANTUS 3 M100 UNITS1 SC (12:32)
[2017-03-20 14:59] LABS: POINT-OF-CARE METER ID UU14208750
== END 2017-03-17 14:43 | DRG 392 ==
LOC: EME 10:49 → 2EAST 14:17 → EDOF 14:17 → ENRESERV 14:34 → 2EAST 16:30
PROVIDERS: Emergency Medicine; Family Medicine
DX: K52.9 Noninfective gastroenteritis and colitis, unspecified (principal); E87.2 Acidosis; E11.65 Type 2 diabetes mellitus with hyperglycemia; I10 Essential (primary) hypertension; J44.9 Chronic obstructive pulmonary disease, unspecified; K74.60 Unspecified cirrhosis of liver; G47.33 Obstructive sleep apnea (adult) (pediatric); D69.6 Thrombocytopenia, unspecified; K21.9 Gastro-esophageal reflux disease without esophagitis; M54.9 Dorsalgia, unspecified; R16.1 Splenomegaly, not elsewhere classified; R26.2 Difficulty in walking, not elsewhere classified; R30.0 Dysuria; G89.29 Other chronic pain; E66.9 Obesity, unspecified; D63.8 Anemia in other chronic diseases classified elsewhere; F32.9 Major depressive disorder, single episode, unspecified; F41.9 Anxiety disorder, unspecified; Z91.19 Patient's noncompliance with other medical treatment and regimen; Z86.711 Personal history of pulmonary embolism; Z86.718 Personal history of other venous thrombosis and embolism; Z79.4 Long term (current) use of insulin; Z79.01 Long term (current) use of anticoagulants; Z86.010 Personal history of colon polyps; Z83.3 Family history of diabetes mellitus; Z87.891 Personal history of nicotine dependence
CPT/HCPCS: 71010; 74177; 80048; 80053; 81003; 82728; 82948; 83540; 83605; 83630; 83690; 84466; 85025; 85610; 85730; 87040; 87177; 87329; 87493; 87506; 87801; 93005; 99281; 99285; J1815; J2270; J2405; J2543; J3370; J7030; J7050; S0030

== ENCOUNTER 2017-04-13 21:04 | Emergency (ER) | payer OTHER ==
[~2017-04-13] VITALS: Ht 188 cm; Wt 93.9 kg
[~2017-04-13 21:04] MED LIST changes: +ACIDOPHILUS LA1 EACH PO; +AMPICILLIN TRI500 MG PO; +BUSPIRONE HCL10 MG PO; +CHOLESTYRAMINE P4 GM PO; +COUMADIN6 MG PO; +DELZICOL400 M1 PO; +DULCOLAX10 MG PR; +FLEET ENEMA-AD118 ML PR; +GLUCO BURST37.5 GM PO; +KLOR-CON 1010 ME1 PO; +LANTUS 10100 UNITS/ SQ; +LANTUS 3 M100 UNITS1 SC; +LASIX40 MG PO; +METFORMIN HCL500 MG PO; +METRONIDAZOLE500 MG PO; +MILK OF MAGN PO; +PRED FORTE100 DROP/5 RIGHT EYE; +TYLENOL REGULA325 MG PO; +WARFARIN SODIUM2 MG PO
[2017-04-13 22:41] LABS: HEMATOCRIT 31.8 % (38.0-50.0); HEMOGLOBIN 10.2 G/DL (12.5-16.6); MCH 25.8 PG (29.0-34.0); MCHC 32.1 G/DL (30.0-36.0); MCV 80.3 FL (86-99); RBC DIS.WIDTH-SD 49.1 % (39-53); RED BLOOD COUNT 3.96 M/uL (4.00-5.50)
[2017-04-13 22:43] LABS: PLATELET COUNT 95 K/uL (156-360)
[2017-04-13 22:52] LABS: ALBUMIN 2.9 g/dL (3.2-4.8); CHLORIDE 108 mEq/L (99-109); POTASSIUM 3.7 mEq/L (3.7-5.4); SODIUM 138 mEq/L (136-147)
[2017-04-13 22:54] LABS: GLUCOSE 92 mg/dL (70-99)
[2017-04-13 22:55] LABS: TOTAL PROTEIN 6.2 g/dL (6.4-8.3)
[2017-04-13 22:56] LABS: TOTAL BILIRUBIN 1.2 mg/dL (0.0-1.0)
[2017-04-13 22:58] LABS: ALKALINE PHOSPHATASE 138 IU/L (3-129); GFR ESTIMATE (CALCULATED) > 59 mL/min/ (58.99-99999)
[2017-04-13 22:59] LABS: UREA NITROGEN (BUN) 20 mg/dL (9-23)
[2017-04-13 23:00] LABS: AST (GOT) 49 IU/L (2-34)
[2017-04-13 23:01] LABS: ALT (GPT) 27 IU/L (3-49)
[2017-04-13 23:28] LABS: APPEARANCE CLEAR ((CLEAR)); BILIRUBIN NEGATIVE; BLOOD NEGATIVE; COLOR YELLOW ((YELLOW)); GLUCOSE (STRIP) 50; KETONES NEGATIVE; LEUKOCYTES NEGATIVE; NITRITE NEGATIVE; PROTEIN (STRIP) NEGATIVE; SPECIFIC GRAVITY 1.023 (1.000-1.030); UCUL ADDED? NO
[2017-04-13] MEDS ORDERED: FLAGYL500 MG PO (23:37)
[2017-04-14 00:43] VITALS: BP 130/61
== END 2017-04-14 00:45 ==
LOC: EME → EDBD 21:04 → EME 21:04
PROVIDERS: Emergency Medicine
DX: K52.9 Noninfective gastroenteritis and colitis, unspecified (principal); E11.9 Type 2 diabetes mellitus without complications; I10 Essential (primary) hypertension; Z79.4 Long term (current) use of insulin; J43.9 Emphysema, unspecified; Z87.442 Personal history of urinary calculi; K21.9 Gastro-esophageal reflux disease without esophagitis; F32.9 Major depressive disorder, single episode, unspecified; F41.9 Anxiety disorder, unspecified; Z86.19 Personal history of other infectious and parasitic diseases; Z86.718 Personal history of other venous thrombosis and embolism; Z87.891 Personal history of nicotine dependence; Z88.5 Allergy status to narcotic agent; Z88.6 Allergy status to analgesic agent
CPT/HCPCS: 71046; 74176; 80053; 81003; 85027; 87502; 93005; 99281; 99285

== ENCOUNTER 2017-05-02 14:31 | Emergency (ER) | payer OTHER ==
[~2017-05-02] VITALS: Ht 175.3 cm; Wt 90.2 kg
[~2017-05-02 14:31] MED LIST changes: +FLAGYL500 MG PO
[2017-05-02 15:44] LABS: BASOPHIL (%) 0.3 % (0-1); CARBON DIOXIDE (BICARBONATE) 25.4 MEQ/L (20-31); EOSINOPHIL (%) 2.3 % (0-5); EOSINOPHIL COUNT 0.1 K/uL (0-0.3); HEMATOCRIT 31.4 % (38.0-50.0); HEMOGLOBIN 10.1 G/DL (12.5-16.6); IMMATURE GRANULOCYTE (%) 0.3 % (0.0-0.7); LYMPHOCYTE (%) 26.4 % (15-42); LYMPHOCYTE COUNT 0.9 K/uL (1.0-2.8); MCH 25.6 PG (29.0-34.0); MCHC 32.2 G/DL (30.0-36.0); MCV 79.7 FL (86-99); MONOCYTE COUNT 0.3 K/uL (0-0.8); NEUTROPHIL (%) 61.7 % (45-76); NEUTROPHIL COUNT 2.1 K/uL (1.8-6.4); PLATELET COUNT 113 K/uL (156-360); RBC DIS.WIDTH-CV 17.3 % (11.8-14.6); RBC DIS.WIDTH-SD 50.1 % (39-53); RED BLOOD COUNT 3.94 M/uL (4.00-5.50); WHITE BLOOD COUNT 3.5 K/uL (4.1-10.2)
[2017-05-02 15:53] LABS: CHLORIDE 106 mEq/L (99-109); POTASSIUM 3.9 mEq/L (3.7-5.4); SODIUM 133 mEq/L (136-147)
[2017-05-02 15:56] LABS: GLUCOSE 446 mg/dL (70-99)
[2017-05-02 15:58] LABS: CREATININE 1.1 mg/dL (0.6-1.3); GFR ESTIMATE (CALCULATED) > 59 mL/min/ (58.99-99999)
[2017-05-02 15:59] LABS: UREA NITROGEN (BUN) 14 mg/dL (9-23)
[2017-05-02 16:06] LABS: TROP-I INTERPRETATION NEGATIVE; TROPONIN-I < 0.01 ng/mL (0.0-0.30)
[2017-05-02 17:23] LABS: APPEARANCE CLEAR ((CLEAR)); BILIRUBIN NEGATIVE; BLOOD SMALL; COLOR YELLOW ((YELLOW)); GLUCOSE (STRIP) >=500; KETONES 5; LEUKOCYTES MODERATE; NITRITE NEGATIVE; PROTEIN (STRIP) NEGATIVE; SPECIFIC GRAVITY 1.024 (1.000-1.030); UROBILINOGEN 0.2 MG/DL (0.2-1.0)
[2017-05-02 17:37] LABS: BACTERIA NONE SEEN /HPF; EPITHELIAL CELLS RARE /HPF; MUCUS NONE SEEN /LPF; UCUL ADDED? NO; WHITE BLOOD CELLS 0-5 /HPF (0-5)
[2017-05-02 19:36] VITALS: BP 150/74
== END 2017-05-02 19:49 | disposition home or self-care (01) ==
LOC: EME 14:31
PROVIDERS: Emergency Medicine
DX: E11.65 Type 2 diabetes mellitus with hyperglycemia (principal); R05 Cough; Z86.711 Personal history of pulmonary embolism; Z86.718 Personal history of other venous thrombosis and embolism; Z79.4 Long term (current) use of insulin; Z87.891 Personal history of nicotine dependence
CPT/HCPCS: 71045; 80048; 81003; 82010; 82803; 82948; 84484; 85025; 93005; J7030

== ENCOUNTER 2017-05-27 20:05 | Emergency (ER) | payer OTHER ==
[~2017-05-27] VITALS: Ht 188 cm; Wt 91.3 kg
[2017-05-27 21:09] LABS: HEMATOCRIT 33.9 % (38.0-50.0); HEMOGLOBIN 10.8 G/DL (12.5-16.6); MCH 25.2 PG (29.0-34.0); MCHC 31.9 G/DL (30.0-36.0); PLATELET COUNT 105 K/uL (156-360); RBC DIS.WIDTH-CV 17.8 % (11.8-14.6); RED BLOOD COUNT 4.29 M/uL (4.00-5.50); WHITE BLOOD COUNT 6.3 K/uL (4.1-10.2)
[2017-05-27 21:31] LABS: CHLORIDE 105 MEQ/L (99-109); POTASSIUM 3.8 MEQ/L (3.7-5.4); SODIUM 135 MEQ/L (136-147)
[2017-05-27 21:37] LABS: CREATININE 0.8 MG/DL (0.6-1.3); GFR ESTIMATE (CALCULATED) > 59 mL/min/ (58.99-99999); GLUCOSE 206 mg/dL (70-99); UREA NITROGEN (BUN) 11 mg/dL (9-23)
[2017-05-28] MEDS ORDERED: AMOXICILLIN500 MG PO (02:08)
[2017-05-28 02:48] VITALS: BP 139/70
[2017-05-28] MEDS ORDERED: KENALOG,ARISTOC15 G3 TP (20:31)
[2017-05-28] MEDS ORDERED: METFORMIN HCL500 MG PO (20:32)
[2017-05-28] MEDS ORDERED: DELZICOL400 M1 PO (20:36)
[2017-05-28] MEDS ORDERED: COUMADIN6 MG PO (20:37)
[2017-05-28] MEDS ORDERED: LANTUS 3 M100 UNITS1 SC (20:39)
[2017-05-28] MEDS ORDERED: AMOXICILLIN500 M1 PO (20:40)
[2017-05-28] MEDS ORDERED: HALOBETASOL PRO15 G2 TP (20:41)
== END 2017-05-28 02:54 | disposition home or self-care (01) ==
LOC: EME 20:05
DX: J01.90 Acute sinusitis, unspecified (principal); E11.9 Type 2 diabetes mellitus without complications; Z79.4 Long term (current) use of insulin; I10 Essential (primary) hypertension; F32.9 Major depressive disorder, single episode, unspecified; K21.9 Gastro-esophageal reflux disease without esophagitis; F41.9 Anxiety disorder, unspecified; Z86.718 Personal history of other venous thrombosis and embolism; Z87.891 Personal history of nicotine dependence; Z88.5 Allergy status to narcotic agent; Z88.6 Allergy status to analgesic agent
CPT/HCPCS: 70450; 70486; 71046; 80048; 85027; 87502; 99281; 99285

== ENCOUNTER 2017-05-28 17:58 | Inpatient (IN) | payer OTHER ==
[~2017-05-28] VITALS: Ht 188 cm; Wt 85.5 kg
[~2017-05-28 17:58] MED LIST changes: +AMOXICILLIN500 MG PO
[2017-05-28] MEDS ORDERED: KENALOG,ARISTOC15 G3 TP (20:31)
[2017-05-28] MEDS ORDERED: METFORMIN HCL500 MG PO (20:32)
[2017-05-28] MEDS ORDERED: DELZICOL400 M1 PO (20:36)
[2017-05-28] MEDS ORDERED: COUMADIN6 MG PO (20:37)
[2017-05-28] MEDS ORDERED: LANTUS 3 M100 UNITS1 SC (20:39)
[2017-05-28] MEDS ORDERED: AMOXICILLIN500 M1 PO (20:40)
[2017-05-28] MEDS ORDERED: HALOBETASOL PRO15 G2 TP (20:41)
[2017-05-28 20:47] LABS: BASOPHIL (%) 0.4 % (0-1); EOSINOPHIL (%) 1.6 % (0-5); EOSINOPHIL COUNT 0.1 K/uL (0-0.3); HEMATOCRIT 33.4 % (38.0-50.0); HEMOGLOBIN 10.5 G/DL (12.5-16.6); IMMATURE GRANULOCYTE (%) 0.4 % (0.0-0.7); LYMPHOCYTE (%) 16.1 % (15-42); LYMPHOCYTE COUNT 0.8 K/uL (1.0-2.8); MCH 25.1 PG (29.0-34.0); MCHC 31.4 G/DL (30.0-36.0); MCV 79.7 FL (86-99); MONOCYTE (%) 6.5 % (3-12); MONOCYTE COUNT 0.3 K/uL (0-0.8); NEUTROPHIL COUNT 3.8 K/uL (1.8-6.4); PLATELET COUNT 88 K/uL (156-360); RBC DIS.WIDTH-CV 17.9 % (11.8-14.6); RBC DIS.WIDTH-SD 51.9 % (39-53); RED BLOOD COUNT 4.19 M/uL (4.00-5.50); WHITE BLOOD COUNT 5.1 K/uL (4.1-10.2)
[2017-05-28 21:02] LABS: ALBUMIN 3.3 G/DL (3.2-4.8); CHLORIDE 102 MEQ/L (99-109); POTASSIUM 3.7 MEQ/L (3.7-5.4); SODIUM 133 MEQ/L (136-147)
[2017-05-28 21:08] LABS: ALKALINE PHOSPHATASE 146 IU/L (3-129); ALT (GPT) 19 IU/L (3-49); AST (GOT) 31 IU/L (2-34); CREATININE 0.9 MG/DL (0.6-1.3); GFR ESTIMATE (CALCULATED) > 59 mL/min/ (58.99-99999); GLUCOSE 223 mg/dL (70-99); TOTAL PROTEIN 6.6 G/DL (6.4-8.3); UREA NITROGEN (BUN) 12 mg/dL (9-23)
[2017-05-29 01:07] VITALS: BP 151/68
[2017-05-29 02:32] LABS: INTER. NORMALIZED RATIO 1.8
[2017-05-29 06:40] LABS: BASOPHIL (%) 0.4 % (0-1); EOSINOPHIL COUNT 0.2 K/uL (0-0.3); HEMATOCRIT 31.5 % (38.0-50.0); HEMOGLOBIN 9.9 G/DL (12.5-16.6); IMMATURE GRANULOCYTE (%) 0.2 % (0.0-0.7); LYMPHOCYTE (%) 24.2 % (15-42); LYMPHOCYTE COUNT 1.2 K/uL (1.0-2.8); MCH 25.3 PG (29.0-34.0); MCHC 31.4 G/DL (30.0-36.0); MCV 80.6 FL (86-99); MONOCYTE (%) 6.7 % (3-12); MONOCYTE COUNT 0.3 K/uL (0-0.8); NEUTROPHIL (%) 65.5 % (45-76); NEUTROPHIL COUNT 3.3 K/uL (1.8-6.4); PLATELET COUNT 92 K/uL (156-360); RBC DIS.WIDTH-SD 52.6 % (39-53); RED BLOOD COUNT 3.91 M/uL (4.00-5.50)
[2017-05-29 07:04] LABS: CHLORIDE 104 MEQ/L (99-109); CREATININE 0.9 MG/DL (0.6-1.3); GFR ESTIMATE (CALCULATED) > 59 mL/min/ (58.99-99999); POTASSIUM 3.3 MEQ/L (3.7-5.4); SODIUM 137 MEQ/L (136-147); UREA NITROGEN (BUN) 13 mg/dL (9-23)
[2017-05-29 07:06] LABS: GLUCOSE 95 mg/dL (70-99)
[2017-05-29 07:48] VITALS: BP 162/70
[2017-05-29 16:32] VITALS: BP 122/58
[2017-05-29 23:05] VITALS: BP 125/60
[2017-05-30 06:05] LABS: HEMATOCRIT 30.4 % (38.0-50.0); HEMOGLOBIN 9.7 G/DL (12.5-16.6); MCH 25.4 PG (29.0-34.0); MCHC 31.9 G/DL (30.0-36.0); MCV 79.6 FL (86-99); PLATELET COUNT 90 K/uL (156-360); RBC DIS.WIDTH-CV 18.3 % (11.8-14.6); RBC DIS.WIDTH-SD 52.5 % (39-53); RED BLOOD COUNT 3.82 M/uL (4.00-5.50); WHITE BLOOD COUNT 3.7 K/uL (4.1-10.2)
[2017-05-30 06:27] LABS: CHLORIDE 103 MEQ/L (99-109); CREATININE 0.9 MG/DL (0.6-1.3); GFR ESTIMATE (CALCULATED) > 59 mL/min/ (58.99-99999); POTASSIUM 3.5 MEQ/L (3.7-5.4); SODIUM 132 MEQ/L (136-147); UREA NITROGEN (BUN) 13 mg/dL (9-23)
[2017-05-30 06:29] LABS: GLUCOSE 225 mg/dL (70-99)
[2017-05-30 07:40] VITALS: BP 171/74
[2017-05-30 10:23] LABS: INTER. NORMALIZED RATIO 1.4
[2017-05-30 16:00] VITALS: BP 166/77
[2017-05-31 00:23] VITALS: BP 141/67
[2017-05-31 06:39] LABS: HEMATOCRIT 32.8 % (38.0-50.0); HEMOGLOBIN 10.3 G/DL (12.5-16.6); MCH 25.3 PG (29.0-34.0); MCHC 31.4 G/DL (30.0-36.0); MCV 80.6 FL (86-99); PLATELET COUNT 95 K/uL (156-360); RBC DIS.WIDTH-CV 18.5 % (11.8-14.6); RBC DIS.WIDTH-SD 52.5 % (39-53); RED BLOOD COUNT 4.07 M/uL (4.00-5.50); WHITE BLOOD COUNT 3.8 K/uL (4.1-10.2)
[2017-05-31 06:47] LABS: INTER. NORMALIZED RATIO 1.4
[2017-05-31 07:02] LABS: CHLORIDE 105 MEQ/L (99-109); CREATININE 0.9 MG/DL (0.6-1.3); GFR ESTIMATE (CALCULATED) > 59 mL/min/ (58.99-99999); GLUCOSE 139 mg/dL (70-99); POTASSIUM 3.8 MEQ/L (3.7-5.4); SODIUM 138 MEQ/L (136-147); UREA NITROGEN (BUN) 13 mg/dL (9-23)
[2017-05-31 08:02] VITALS: BP 170/73
== END 2017-05-31 12:24 | disposition left against medical advice (07) | DRG 155 ==
LOC: EME 17:58 → 5EAST 22:47 → EDOF 22:47 → ENRESERV 22:50 → EDOF 05-29 00:34 → 5EAST 05-29 00:35
PROVIDERS: Emergency Medicine; Hospitalist; Physician Assistant
DX: H60.22 Malignant otitis externa, left ear (principal); L03.211 Cellulitis of face; E11.65 Type 2 diabetes mellitus with hyperglycemia; E87.2 Acidosis; E87.6 Hypokalemia; I11.0 Hypertensive heart disease with heart failure; I50.32 Chronic diastolic (congestive) heart failure; K21.9 Gastro-esophageal reflux disease without esophagitis; E78.5 Hyperlipidemia, unspecified; H91.90 Unspecified hearing loss, unspecified ear; D68.9 Coagulation defect, unspecified; J44.9 Chronic obstructive pulmonary disease, unspecified; J01.90 Acute sinusitis, unspecified; J32.9 Chronic sinusitis, unspecified; D69.6 Thrombocytopenia, unspecified; G47.33 Obstructive sleep apnea (adult) (pediatric); D64.9 Anemia, unspecified; F41.9 Anxiety disorder, unspecified; F32.9 Major depressive disorder, single episode, unspecified; Z91.19 Patient's noncompliance with other medical treatment and regimen; Z79.01 Long term (current) use of anticoagulants; Z79.4 Long term (current) use of insulin; Z60.2 Problems related to living alone; Z86.711 Personal history of pulmonary embolism; Z87.442 Personal history of urinary calculi; Z86.010 Personal history of colon polyps; Z87.891 Personal history of nicotine dependence
CPT/HCPCS: 70450; 70486; 71046; 80048; 80053; 82800; 82948; 83605; 83930; 85025; 85027; 85610; 87040; 87070; 87502; 99281; 99285; J1644; J1815; J2270; J2543; J7030; J7050; J7120

== ENCOUNTER 2017-10-17 15:10 | Emergency (ER) | payer OTHER ==
[~2017-10-17] VITALS: Ht 188 cm; Wt 95.0 kg
[~2017-10-17 15:10] MED LIST changes: +AMOXICILLIN500 M1 PO; +HALOBETASOL PRO15 G2 TP; +KENALOG,ARISTOC15 G3 TP
[2017-10-17 16:40] LABS: HEMATOCRIT 30.1 % (38.0-50.0); HEMOGLOBIN 9.7 G/DL (12.5-16.6); MCH 25.7 PG (29.0-34.0); MCHC 32.2 G/DL (30.0-36.0); MCV 79.8 FL (86-99); PLATELET COUNT 100 K/uL (156-360); RBC DIS.WIDTH-CV 18.1 % (11.8-14.6); RBC DIS.WIDTH-SD 52.7 % (39-53); RED BLOOD COUNT 3.77 M/uL (4.00-5.50); WHITE BLOOD COUNT 4.7 K/uL (4.1-10.2)
[2017-10-17 16:53] LABS: CHLORIDE 107 mEq/L (99-109); SODIUM 135 mEq/L (136-147)
[2017-10-17 16:55] LABS: GLUCOSE 323 mg/dL (70-99); TOTAL PROTEIN 6.8 g/dL (6.4-8.3)
[2017-10-17 16:57] LABS: TOTAL BILIRUBIN 1.1 mg/dL (0.0-1.0)
[2017-10-17 16:58] LABS: SERUM ETHYL ALCOHOL < 10 mg/dL
[2017-10-17 16:59] LABS: ALKALINE PHOSPHATASE 172 IU/L (3-129); CREATININE 0.9 mg/dL (0.6-1.3); GFR ESTIMATE (CALCULATED) > 59 mL/min/ (58.99-99999)
[2017-10-17 17:00] LABS: AST (GOT) 56 IU/L (2-34); UREA NITROGEN (BUN) 13 mg/dL (9-23)
[2017-10-17 17:02] LABS: ALT (GPT) 35 IU/L (3-49)
[2017-10-17 17:39] LABS: INTER. NORMALIZED RATIO 2.3
[2017-10-17 17:42] LABS: APPEARANCE CLEAR ((CLEAR)); BILIRUBIN NEGATIVE; BLOOD MODERATE; COLOR YELLOW ((YELLOW)); GLUCOSE (STRIP) >=500; KETONES NEGATIVE; LEUKOCYTES NEGATIVE; NITRITE NEGATIVE; PROTEIN (STRIP) NEGATIVE; SPECIFIC GRAVITY 1.017 (1.000-1.030); UROBILINOGEN 0.2 MG/DL (0.2-1.0)
[2017-10-17 17:56] LABS: AMPHETAMINE NEGATIVE (500 ng/mL); BARBITURATES NEGATIVE (200 ng/mL); BENZODIAZEPINES NEGATIVE (150 ng/mL); BUPRENORPHINE NEGATIVE (10 ng/mL); COCAINE NEGATIVE (150 ng/mL); METHADONE NEGATIVE (200 ng/mL); METHAMPHETAMINE NEGATIVE (500 ng/mL); OPIATES (MORPHINE) NEGATIVE (100 ng/mL); OXYCODONE NEGATIVE (100 ng/mL); PHENCYCLIDINE NEGATIVE (25 ng/mL); PROPOXYPHENE NEGATIVE (300 ng/mL); THC CANNABINOIDS NEGATIVE (50 ng/mL); TRICYCLIC ANTIDEPRESSANTS NEGATIVE (300 ng/mL)
[2017-10-17 19:42] LABS: RED BLOOD CELLS 0-5 /HPF (0-5); WHITE BLOOD CELLS RARE /HPF (0-5)
[2017-10-17 19:43] LABS: BACTERIA RARE /HPF; CALCIUM OXALATE CRYSTALS FEW /HPF; COARSE GRANULAR CASTS RARE /LPF; EPITHELIAL CELLS RARE /HPF; MUCUS 1+ /LPF; UCUL ADDED? NO
[2017-10-17 19:44] VITALS: BP 167/82
== END 2017-10-17 19:47 | disposition home or self-care (01) ==
LOC: EME 15:10
PROVIDERS: Emergency Medicine
DX: E11.65 Type 2 diabetes mellitus with hyperglycemia (principal); Z04.6 Encounter for general psychiatric examination, requested by authority; K21.9 Gastro-esophageal reflux disease without esophagitis; I10 Essential (primary) hypertension; F41.9 Anxiety disorder, unspecified; F32.9 Major depressive disorder, single episode, unspecified; Z87.891 Personal history of nicotine dependence; Z87.442 Personal history of urinary calculi; Z86.718 Personal history of other venous thrombosis and embolism; Z86.711 Personal history of pulmonary embolism; Z79.01 Long term (current) use of anticoagulants; Z79.4 Long term (current) use of insulin; Z90.49 Acquired absence of other specified parts of digestive tract; Z88.5 Allergy status to narcotic agent; Z88.1 Allergy status to other antibiotic agents; Z88.6 Allergy status to analgesic agent; Z88.8 Allergy status to other drugs, medicaments and biological substances
CPT/HCPCS: 80053; 81003; 85027; 85610; 90837; 99281; 99283; G0480

== ENCOUNTER 2017-11-13 08:54 | Emergency (ER) | payer OTHER ==
[~2017-11-13] VITALS: Ht 188 cm; Wt 81.0 kg
[2017-11-13 09:25] LABS: BASOPHIL (%) 0.3 % (0-1); EOSINOPHIL (%) 1.9 % (0-5); EOSINOPHIL COUNT 0.1 K/uL (0-0.3); HEMATOCRIT 32.6 % (38.0-50.0); HEMOGLOBIN 10.8 G/DL (12.5-16.6); IMMATURE GRANULOCYTE (%) 0.6 % (0.0-0.7); LYMPHOCYTE (%) 18.2 % (15-42); LYMPHOCYTE COUNT 1.3 K/uL (1.0-2.8); MCH 26.3 PG (29.0-34.0); MCHC 33.1 G/DL (30.0-36.0); MCV 79.5 FL (86-99); MONOCYTE (%) 8.3 % (3-12); MONOCYTE COUNT 0.6 K/uL (0-0.8); NEUTROPHIL (%) 70.7 % (45-76); PLATELET COUNT 123 K/uL (156-360); RBC DIS.WIDTH-CV 18.8 % (11.8-14.6); RBC DIS.WIDTH-SD 54.1 % (39-53)
[2017-11-13 09:34] LABS: CHLORIDE 94 mEq/L (99-109); POTASSIUM 3.1 mEq/L (3.7-5.4); SODIUM 134 mEq/L (136-147)
[2017-11-13 09:36] LABS: GLUCOSE 153 mg/dL (70-99)
[2017-11-13 09:40] LABS: CREATININE 1.1 mg/dL (0.6-1.3); GFR ESTIMATE (CALCULATED) > 59 mL/min/ (58.99-99999); UREA NITROGEN (BUN) 19 mg/dL (9-23)
[2017-11-13 09:53] LABS: APPEARANCE CLEAR ((CLEAR)); BILIRUBIN NEGATIVE; BLOOD SMALL; COLOR YELLOW ((YELLOW)); GLUCOSE (STRIP) NEGATIVE; KETONES NEGATIVE; LEUKOCYTES NEGATIVE; NITRITE NEGATIVE; PROTEIN (STRIP) NEGATIVE; SPECIFIC GRAVITY 1.019 (1.000-1.030)
[2017-11-13 10:03] LABS: BACTERIA NONE SEEN /HPF; EPITHELIAL CELLS RARE /HPF; HYALINE CASTS 0-5 /LPF; MUCUS NONE SEEN /LPF; RED BLOOD CELLS 0-5 /HPF (0-5); WHITE BLOOD CELLS 0-5 /HPF (0-5)
[2017-11-13 14:30] VITALS: BP 125/70
== END 2017-11-13 14:30 | disposition home or self-care (01) ==
LOC: EME 08:54
PROVIDERS: Emergency Medicine
DX: R53.1 Weakness (principal); E87.6 Hypokalemia; E11.9 Type 2 diabetes mellitus without complications; Z79.4 Long term (current) use of insulin; I10 Essential (primary) hypertension; F32.9 Major depressive disorder, single episode, unspecified; F41.9 Anxiety disorder, unspecified; K21.9 Gastro-esophageal reflux disease without esophagitis; Z86.718 Personal history of other venous thrombosis and embolism; Z90.49 Acquired absence of other specified parts of digestive tract; Z88.5 Allergy status to narcotic agent; Z88.8 Allergy status to other drugs, medicaments and biological substances; Z88.6 Allergy status to analgesic agent; Z87.891 Personal history of nicotine dependence; Z87.442 Personal history of urinary calculi
CPT/HCPCS: 71045; 80048; 81003; 85025; 93005; 99281; 99285; G8978 GP CJ; G8979 GP CI; G8980 CJ; G8987 GO CJ; G8988 CI; G8989 CJ